=== PATIENT | female | born 1960 | race Two or more races ===

== ENCOUNTER 2018-02-11 14:03 | Emergency (ER) | payer BC ==
[~2018-02-11] VITALS: Ht 170.2 cm; Wt 86.2 kg
--- NOTE | 2018-02-11 14:40 | NUR ---
BIB SELF W C/O RECTAL PAIN, HEMORRHOIDS "Pain in my rectum started 1 1/2wk ago seen and was given steroids, pain was bad." TO ER BED 16, VSS, AWAITING MD SHAVER
--- NOTE | 2018-02-11 15:01 | NUR ---
Patient discharged to home in stable condition. Written and verbal after care instructions given. Patient verbalizes understanding of instruction.
[2018-02-11 15:15] VITALS: BP 149/96
== END 2018-02-11 15:02 | disposition home or self-care (01) ==
LOC: ER 14:14
DX: K64.9 Unspecified hemorrhoids (principal); I10 Essential (primary) hypertension; K21.9 Gastro-esophageal reflux disease without esophagitis; F41.9 Anxiety disorder, unspecified
CPT/HCPCS: 99283; A4606; Z7610